=== PATIENT | female | born 1935 | race African-American/Black ===

== ENCOUNTER 2017-09-30 13:24 | Emergency (ER) | payer OTHER ==
[~2017-09-30] VITALS: Ht 167.6 cm; Wt 65.8 kg
[2017-09-30 13:25] VITALS: BP 116/51
== END 2017-09-30 15:15 | disposition home or self-care (01) ==
LOC: ER 13:24
DX: S09.90XA Unspecified injury of head, initial encounter (principal); Z88.0 Allergy status to penicillin; Z88.8 Allergy status to other drugs, medicaments and biological substances; W07.XXXA Fall from chair, initial encounter; Y93.89 Activity, other specified; Y92.89 Other specified places as the place of occurrence of the external cause; Y99.8 Other external cause status

== ENCOUNTER 2020-07-12 11:11 | Inpatient (IN) | payer OTHER ==
[~2020-07-12] VITALS: Ht 172.7 cm; Wt 81.7 kg
--- NOTE | ~2020-07-12 | EMS ---
[address] [address] EMS Patient Care Report Name: HENRY FLORES Room #: REG JANAE Santoyo#: [id number] Admission: 07/12/20 Attend Phys: Discharge: Date of : 33 Report #: [id number] THIS REPORT FOR: //name// Report Transmitted: 07/12/2020 11:10 EMS Care Summary [place], [place]/[facility] Incident [id number] @ 07/12/2020 10:43 Incident Location [address] [place], [place] [address] [facility]-8 Patient HENRY FLORES Female, 85 Years 1935 Patient Address [address] [place] [address] [place] [id number] Patient History Type 2 Diabetes,Cardiomyopathy, Patient Allergies No known allergies, Patient Medications Senna, Chief Complaint unresponsive, covid positive Disposition Transported No Lights/[place] Reason Unconscious/Fainting Transported To [facility] Narrative S: 85 yo female tested positive for covid on 07/07. She has been receiving steroids since then. Today the staff found her unresponsive. Upon our arrival the pt was laying in bed unresponsive. The pts sats were in the 70's on a NC. I [facility] [address] [place] [address] EMS Patient Care Report Name: HENRY FLORES Room #: [facility] Natanael#: [id number] Admission: 07/12/20 Attend Phys: Discharge: Date of : 33 Report #: [id number] increased her oxygen to a NRB at 15 LPM with her sats improving to 84%. The pt continued to be unresponsive. The pt has a DNR that was transported to the hospital with pt. The pt is normally alert and oriented x 3 and is self sufficient. O: GCS- 3, The pt breathing is slow and shallow. ECG- SR. Skin- hot to the touch. Pupils- pinpoint. The pt has not been given narcotics. Unknown if she has received tylenol. no other obvious injury or illness noted. A: unresponsive P: vs, ecg, The pt already had a saline lock in place. oxygen. Pt transported to [facility] without any other changes. Initial Vitals @10:58P: 133,CO: 0,SpO2: 78, @10:56P: 77,SpO2: 75, @11:05P: 99,SpO2: 84, @11:04P: 68,R: 10,BP: 66/29,Pain: 0/10,GCS: 3,SpO2: 85,Revised Trauma: 6, @10:59P: 94,R: 10,BP: 74/50,Pain: 0/10,GCS: 3,Temp: 101F,SpO2: 80,Revised Trauma: 6, Assessments @10:52MENTAL:Unresponsive,SKIN:Hot,HEENT:Eyes: Left: Constricted,Eyes: Right: Constricted,Head/Face: No Abnormalities,Neck/Airway: No Abnormalities,LUNG SOUNDS:General: No Abnormalities,ABDOMEN:General: No Abnormalities,PELVIS//GI:EXTREMITIES:PULSE:NEURO: Impression Altered Mental Status Procedures @10:51ALS AssessmentResponse: UnchangedSucceeded@10:54Oxygen FlowRate: 15 Device: Non Re-breather Mask (NRB) Response: ImprovedFailed@10:58Normal Saline (.9% NaCl) 50cc () Site: Hand-RightResponse: UnchangedSucceeded@10:543-Lead ECGResponse: UnchangedSucceeded Timeline 10:41,Call Received 10:41,Dispatch Notified 10:43,Dispatched 10:43,En Route 10:49,On Scene 10:51,At Patient 10:51,ALS Assessment,Response: UnchangedSucceeded, 10:54,Oxygen FlowRate: 15 Device: Non Re-breather Mask (NRB) Response: ImprovedFailed, 10:54,3-Lead ECG,Response: UnchangedSucceeded, 10:56,BP: / M,PULSE: 77,RR: R,SPO2: 75 Ox,ETCO2: ,BG: ,PAIN: ,GCS: , [address] [address] EMS Patient Care Report Name: HENRY FLORES Room #: REG GonzalesR.#: [id number] Admission: 07/12/20 Attend Phys: Discharge: Date of : 33 Report #: [id number] 10:58,Normal Saline (.9% NaCl) 50cc Site: Hand-Right,Response: UnchangedSucceeded, 10:58,BP: / M,PULSE: 133,RR: R,SPO2: 78 Ox,ETCO2: ,BG: ,PAIN: ,GCS: , 10:59,BP: 74/50 M,PULSE: 94,RR: 10 R,SPO2: 80 Ox,ETCO2: ,BG: ,PAIN: 0,GCS: 3, 11:04,BP: 66/29 M,PULSE: 68,RR: 10 R,SPO2: 85 Ox,ETCO2: ,BG: ,PAIN: 0,GCS: 3, 11:04,Depart Scene 11:05,BP: / M,PULSE: 99,RR: R,SPO2: 84 Ox,ETCO2: ,BG: ,PAIN: ,GCS: , 11:07,At Destination 11:46,Call Closed Disclaimer v1.1 Copyright 2020 [employer] This EMS Care Summary contains data elements from the applicable legal record (which may be displayed differently). It is designed to provide pertinent information for the following purposes: continuity of care, clinical quality, and state data reporting. The complete legal record is available to ED staff and administrators of the receiving hospital in [employer] Patient Tracker. All data is provided "as is."
[2020-07-12 11:11] VITALS: BP 57/33
[2020-07-12] MEDS ORDERED: VITCB500GO PO (11:23)
[2020-07-12] MEDS ORDERED: ASA81BEC PO (11:23)
[2020-07-12] MEDS ORDERED: CARVEDILOL12.5 MG PO (11:24)
[2020-07-12] MEDS ORDERED: D3-501250 MCG PO (11:25)
[2020-07-12] MEDS ORDERED: COZAAR 25 MG TA25 M2 PO (11:26)
[2020-07-12] MEDS ORDERED: DECADRON6 MG PO (11:29)
[2020-07-12] MEDS ORDERED: ERGOCALCIFEROL1 GM PO (11:31)
[2020-07-12] MEDS ORDERED: FAMOTIDINE 20 M20 MG PO (11:31)
[2020-07-12] MEDS ORDERED: NEURONTIN 400400 M1 PO (11:31)
[2020-07-12] MEDS ORDERED: UNICOMPLEX M TA1 TA1 PO (11:33)
[2020-07-12] MEDS ORDERED: LEXAPRO 10 MG T10 M2 PO (11:33)
[2020-07-12] MEDS ORDERED: NORCO 10-325 T1 EACH PO (11:37)
[2020-07-12] MEDS ORDERED: TRAMADOL 50 MG50 MG PO (11:38)
[2020-07-12] MEDS ORDERED: SENNA PLUS TAB1 EACH PO (11:38)
[2020-07-12] MEDS ORDERED: ZINC SULFATE220 MG PO (11:38)
[2020-07-12 12:13] LABS: BASOPHILS 0.4 % (0.0-2.0); HEMATOCRIT 38.9 % (37.0-47.0); HEMOGLOBIN 12.2 gm/dL (12.0-15.0); LYMPHOCYTES 11.6 % (24.0-44.0); MCH 28.6 pg (26.0-34.0); MCHC 31.5 g/dL (28.0-37.0); MONOCYTES 3.7 % (1.0-8.0); POLYS 84.3 % (36.0-66.0); RBC 4.27 mil/uL (4.20-5.00); WBC 3.6 thou/uL (4.0-11.0)
[2020-07-12 12:26] LABS: CALCIUM 6.7 mg/dL (8.5-10.1); POTASSIUM 3.2 mmol/L (3.5-5.1)
[2020-07-12 12:31] LABS: ALBUMIN 2.1 g/dL (3.4-5.0); TOTAL BILIRUBIN 0.4 mg/dL (0.2-1.0)
[2020-07-12 13:31] LABS: PLATELET COUNT 88 thou/uL (150-400); PLATELET ESTIMATE SLIGHTLY DECREASED
--- NOTE | 2020-07-12 14:42 | NUR ---
SUKHWINDER TAN AT BEDSIDE TO INSERT CENTRAL LINE
--- NOTE | 2020-07-12 15:01 | NUR ---
CALLED TO ER FOR PICC, PT'S LABS,MEDS,HX,ORDER AND CONSENT VERIFIED. RAMIRO BRACHIAL WAS WIDELY PATENT WITH USG. 5FR TL POWER PICC TRIMMED TO 46CM INSERTED TO 1CM EXTERNAL. STAT CXR ORDERED,
--- NOTE | 2020-07-12 15:25 | EKG ---
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 : 1935 Requested By: Eliceo Meyer Order Number: [id number] MD: Pedro Treadwell Measurements Intervals [place] Rate: 60 P: 0 TX: 180 QRS: 265 QRSD: 124 T: 33 QT: 479 QTc: 479 Interpretive Statements Ventricular-paced rhythm No further analysis attempted due to paced rhythm No previous ECG available for comparison Electronically Signed On 07-12-2020 15:25:34 PROFESSOR OF ENVIRONMENTAL STUDIES by Pedro Treadwell [email or web address] <ELECTRONICALLY SIGNED> By: Pedro Traedwell MD, [facility] 07/12/20 1525 1301 1301 Pedro Treadwell MD, FACC /EPI
--- NOTE | 2020-07-12 16:25 | NUR ---
CXR CONFIRMED PICC IN SVC, RELEASED FOR IMMEDIATE USE PER PROTOCOL
[2020-07-12 20:59] VITALS: BP 156/98
--- NOTE | 2020-07-12 21:03 | NUR ---
SPOKE WITH FAMILY AND INFORMED THEM ABOUT THE BED ORDER ON THE PT. THIS NURSE TOLD FAMILY THAT SHE WILL KEEP THE PT DOWN IN THE ER FOR ANOTHER 30 MINS TO GIVE THEM SOME TIME TO SEE THEIR LOVED ONE BEFORE SHE WAS TRANSPORTED UPSTAIRS. FAMILY LET NURSE KNOW THAT THEY WILL DECIDE IF THEY WANT TO COME TO THE ER TO SEE PT
--- NOTE | 2020-07-12 21:13 | NUR ---
RECEIVED ORDERS FROM DR SEO.
--- NOTE | 2020-07-12 23:34 | NUR ---
PT ARRIVED TO UNIT AT 2215 WITH COMFORT CARE ORDERS. GOT PT SETTLED IN BED AND PLACED ON TELE MONITOR. AT 2248 PT HEART RATE DECREASED AND BECAME ASYSTOLE. TWO RNS MADE DETERMINATION THAT PT . ALL APPROPRIATE CONSULTS, HOSPITALIST AND CUSTOMER FIELD REPRESENTATIVE WERE CONTACTED. SPOKE TO PT DAUGHTER EITAN POOLE AT 2320 TO INFORM HER OF HER MOTHERS PASSING. DPOA STATES THAT [facility] HOME IS WISHES OF HER MOTHER.
== END 2020-07-12 22:48 | DRG 871 ==
LOC: ER 11:11 → EROBS 14:44 → 3W 21:53
PROVIDERS: Emergency Medicine; ADMIT Hospitalist; ATTEND Hospitalist
DX: A41.9 Sepsis, unspecified organism (principal); J96.01 Acute respiratory failure with hypoxia; U07.1 COVID-19; E43 Unspecified severe protein-calorie malnutrition; G93.41 Metabolic encephalopathy; J12.82 Pneumonia due to coronavirus disease 2019; R65.21 Severe sepsis with septic shock; K72.00 Acute and subacute hepatic failure without coma; N17.9 Acute kidney failure, unspecified; I25.5 Ischemic cardiomyopathy; F41.9 Anxiety disorder, unspecified; I95.9 Hypotension, unspecified; E11.51 Type 2 diabetes mellitus with diabetic peripheral angiopathy without gangrene; Z96.652 Presence of left artificial knee joint; Z66 Do not resuscitate; I11.0 Hypertensive heart disease with heart failure; I50.9 Heart failure, unspecified; E87.6 Hypokalemia; D69.6 Thrombocytopenia, unspecified; Z51.5 Encounter for palliative care; Z91.81 History of falling; Z88.0 Allergy status to penicillin; Z88.8 Allergy status to other drugs, medicaments and biological substances; Z79.899 Other long term (current) drug therapy
CPT/HCPCS: 10779; 27000